=== PATIENT | female | born 1995 | race Caucasian/White ===

== ENCOUNTER → 2017-08-28 | Outpatient (CLI) | payer BC, OTHER | LOC: FIMAGING 15:18 | PROVIDERS: ATTEND Psychiatry & Neurology Neurology | DX: M47.892 Other spondylosis, cervical region (principal); G37.3 Acute transverse myelitis in demyelinating disease of central nervous system ==

== ENCOUNTER 2018-03-05 17:17 | Emergency (ER) | payer BC ==
[2018-03-05] MEDS ORDERED: GABAPENTIN 100 MG CAP PO ONE (18:07)
--- NOTE | 2018-03-05 18:34 | EDPHY ---
H & P Stated Complaint: transverse myelitis flare up started last tuesday, multiple neuro complaints Time Seen by Provider: 03/05/18 17:36 HPI/ROS: This patient presents with recurrence of transverse myelitis symptoms this week that started 1 week ago and worsened 4 days ago. She describes 7/10 midline thoracic back pain associated with painful dysesthesias to the left leg and feeling of tightness in the left leg. She also has paresthesias to the same extremities, tingling and numbness to the right lower extremity and a heavy feeling in her right arm. She denies any focal weakness. She also notes urinary urgency with occasional incontinence. She reports left hand spasm intermittently and she reports that the symptoms are similar to early transverse myelitis symptoms. She also reports that this is the worst recurrence flare that she has had. She explains that after the initial episode in 2012 that was idiopathic and involved spinal lesions between C5 in T1 she has had 2 other minor flares that were handled with outpatient steroids with resolution. She started prednisone 60 mg a day yesterday and today after consultation with Dr. Gomes her neurologist but notes ongoing symptoms without relief in with mild worsening of symptoms. She was also started on duloxetine in an effort to help control nerve pain but reports no improvement in the pain with onset of nausea, so she stopped that medication Tuesday, 2 days prior to arrival. She had ibuprofen and Tylenol 2 hr prior to arrival without much improvement in her pain. She notes no other exacerbating factors. Her mother drove her here by private vehicle for further evaluation. ROS: Constitutional: No fevers or chills. She does report generalized weakness. HEENT: No recent URI symptoms. Neuro: As per HPI. No headache. No vision changes. Pulmonary: No cough shortness of breath Cardiovascular: No chest pain, or palpitations or lightheadedness GI: Mild nausea and anorexia. No abdominal pain. No vomiting. : As per HPI. No dysuria. No flank pain. Integumentary: No skin rash. Complete ROS is otherwise negative. Source: Patient, Family (Patient is accompanied by her mother who also provides history) Exam Limitations: No limitations - Personal History LMP (Females 10-55): 8-14 Days Ago Tetanus Vaccine Date: 03/2011 - Medical/Surgical History Hx Asthma: No Hx Chronic Respiratory Disease: No Hx Diabetes: No Hx Cardiac Disease: No Hx Renal Disease: No Hx Cirrhosis: No Hx Alcoholism: No Hx HIV/AIDS: No Hx Splenectomy or Spleen Trauma: No Other PMH: PMH:transverse myelytis; R femor stress fx; cocyx fx; R tibia stress fx x2; spinal cord inflammation, OSTEOPENIA, GASTROPORESIS. PSH: T&A; ear tubes ; - Social History Smoking Status: Never smoked Alcohol Use: Occasionally Drug Use: None - Physical Exam Exam: Physical exam: Vital signs are normal General: Patient is in no acute distress. HEENT: Is no external evidence of trauma on exam. Nose atraumatic. Ears: Clear bilaterally with no hemotympanum. Oropharynx: No dental trauma or malocclusion. No intraoral lacerations. Eyes: Pupils are equal and reactive to light. Extraocular motions are intact. Optic fundi: Clear with no papilledema or hemorrhage. Neck: The patient has no midline neck tenderness and retains a full range of motion without increase in pain. Lungs: Clear to auscultation bilaterally Cardiac: Regular rate and rhythm no murmur gallop or rub. Abdomen: Soft nontender no organomegaly Back: The patient has midline thoracic tenderness in the upper thoracic spine region. No erythema or skin lesions. Extremities: Atraumatic Skin: Mildly diaphoretic. No rash. Neuro: GCS of 15. Cranial nerves II through XII intact. She reports diminished light touch sensation to the left hand in the region of the 4th and 5th fingers. She also reports diminished sensation but also increased sensitivity in a stocking distribution to the right leg. Appreciate no focal weakness in her 4 extremities. She maintains 2+ brisk DTRs biceps, triceps, brachioradialis, patellar and Achilles bilaterally. Initial differential diagnosis: Idiopathic Transverse myelitis recurrence, MS, lupus, viral syndrome, idiopathic neuropathy Constitutional: Initial Vital Signs Temperature (C) 37.2 C 03/05/18 17:30 Heart Rate 88 03/05/18 17:30 Respiratory Rate 18 03/05/18 17:30 Blood Pressure 111/67 03/05/18 17:30 O2 Sat (%) 92 03/05/18 17:30 O2 Delivery Mode Room Air Allergies/Adverse Reactions: tramadol Allergy (Verified 03/05/18 17:29) Home Medications: Medication Instructions Recorded Jaycee 28 Tablet 09/03/15 Fosamax 5mg 04/20/16 Doxycycline Hyclate 03/05/18 Prednisone 03/05/18 Medical Decision Making ED Course/Re-evaluation: Gabapentin 200 mg p.o. For nerve pain I consulted Dr. Sykes on-call for Dr. Gomes, neurology. He agrees with gabapentin plan explain that she go up to 300 mg HS for pain control. He recommends MRI imaging thigh with IV contrast of the neck and thoracic spine- location of her prior lesions. Explains the patient be admitted for high-dose IV steroids if she has enhancing lesions on MRI. Home with outpatient follow- up if not. Given that we do not have MRI capability in the weekend, will transfer this patient to [facility] Emergency Department. Patient and her mother both comfortable with this plan. I spoke with Dr. Erika Magaña, emergency physician who accepts this patient for transfer for MR imaging and further treatment as indicated. I answered the patient's questions and her mother's questions prior to transfer to [facility] Emergency Department - Data Points Medications Given: Discontinued Medications Gabapentin (Neurontin) 200 mg PO EDNOW ONE Stop: 03/05/18 18:08 Last Admin: 03/05/18 18:19 Dose: 200 mg Departure - Departure Disposition: [facility] ER Clinical Impression: Neuropathy, History of transverse myelitis Thoracic back pain Qualifiers: Chronicity: acute Back pain laterality: midline Qualified Code(s): M54.6 - Pain in thoracic spine Condition: Good Instructions: Thoracic Pain (ED) Additional Instructions: Diagnosis: 1. Thoracic pain 2. Neuropathy 3. History of transverse myelitis He received a 200 mg dose of gabapentin here for your pain. Plan: Proceed directly to [facility] Emergency Department for further evaluation via MRI imaging. Referrals: Mindy Rush MD [Primary Care Provider] - As per Instructions Esa Gomes MD [Medical Doctor] - As per Instructions
[2018-03-05] MEDS ORDERED: GADOBUTROL 10 ML VIAL IVP ONE (19:45)
[2018-03-05] MEDS ORDERED: LORazepam 2 MG/ML INJ ONE (19:51)
[2018-03-05] MEDS ORDERED: LORazepam 2 MG/ML INJ IVP ONE (19:53)
[2018-03-05 20:14] LABS: PLATELET COUNT 252 10^3/uL (150-400)
--- NOTE | 2018-03-05 20:35 | EDPHY ---
H & P Stated Complaint: transverse myelitis flare up started last tuesday, multiple neuro complaints Time Seen by Provider: 03/05/18 17:36 HPI/ROS: CHIEF COMPLAINT: Flare up of transverse myelitis HISTORY OF PRESENT ILLNESS: 22-year-old female with a history of transverse myelitis presents with paresthesias and weakness. 1 week ago, she developed pain in her thoracic spine, associated with dysesthesias in the left upper extremity, associated with spasming in the left hand. She also has similar symptoms on the right side, but not as bad. Her left lower extremity feels tight, but no weakness in her lower extremities. She saw Dr. Gomes in the office and was started on prednisone 60 mg daily yesterday. She was also started on duloxetine for pain control. She was seen at [facility] Emergency Department. Consultation with Dr. Kymberly Frazier was obtained and he recommended emergency department evaluation for MRI of the cervical and thoracic spine. She was given gabapentin 200 mg orally in the emergency department there. She was diagnosed with transverse myelitis in 2012, involving C5 through T1. Since then she has had 2 flares, each resolving with outpatient steroids. REVIEW OF SYSTEMS: complete 10 point ROS negative except at noted in the HPI - Personal History LMP (Females 10-55): 8-14 Days Ago Tetanus Vaccine Date: 03/2011 - Medical/Surgical History Hx Asthma: No Hx Chronic Respiratory Disease: No Hx Diabetes: No Hx Cardiac Disease: No Hx Renal Disease: No Hx Cirrhosis: No Hx Alcoholism: No Hx HIV/AIDS: No Hx Splenectomy or Spleen Trauma: No Other PMH: PMH:transverse myelytis; R femor stress fx; cocyx fx; R tibia stress fx x2; spinal cord inflammation, OSTEOPENIA, GASTROPORESIS. PSH: T&A; ear tubes ; - Social History Smoking Status: Never smoked Alcohol Use: None Drug Use: None Additional Social History: single - Physical Exam Exam: General Appearance: Alert, pleasant Eyes: Pupils equal and round, no conjunctival pallor or injection ENT, Mouth: Mucous membranes moist Neck: Normal inspection Respiratory: Lungs are clear to auscultation Cardiovascular: Regular rate and rhythm Gastrointestinal: Abdomen is soft and nontender Neurological: A&O, motor-left upper extremity 5-over 5 fleet assistant strength, otherwise 5/5 throughout, decrease in sensation to light touch bilateral upper extremities. Skin: Warm and dry, no rash Extremities: Normal inspection Psychiatric: Mood and affect normal Constitutional: Initial Vital Signs Temperature (C) 37.2 C 03/05/18 17:30 Heart Rate 88 03/05/18 17:30 Respiratory Rate 18 03/05/18 17:30 Blood Pressure 111/67 03/05/18 17:30 O2 Sat (%) 92 03/05/18 17:30 O2 Delivery Mode Room Air Allergies/Adverse Reactions: tramadol Allergy (Verified 03/05/18 17:29) Home Medications: Medication Instructions Recorded Jaycee 28 Tablet 09/03/15 Fosamax 5mg 04/20/16 Doxycycline Hyclate 03/05/18 Gabapentin [Neurontin 100 MG (*)] 200 mg PO TID #40 cap 03/05/18 Prednisone 03/05/18 Medical Decision Making - Diagnostics Imaging Results: Imaging Impressions Cervical Spine MRI 03/05/18 19:09 Impression: 1. Subtle residual gliosis in area of previous transverse myelitis at the C6 level involving the left side of the cervical spinal cord stable when compared to the recent MRI exams. No new abnormality seen associated with the cervical spinal cord. 2. Minimal disk bulges without consequences at C5-C6 and at C6-C7 stable in appearance. Findings discussed with Erika Magaña M.D. at 21:19 hour, 03/05/2018. Thoracic Spine MRI 03/05/18 19:09 Impression: Normal MRI of the thoracic spine without and with contrast. ED Course/Re-evaluation: MRI of the thoracic and cervical spine read by Dr. Derek Morrison is unremarkable for acute changes. No evidence for recurrent transverse myelitis by MRI. Results discussed with the patient and her mother. She will continue taking prednisone as an outpatient and follow up with Dr. Gomes in the office. A prescription for gabapentin was written at the patient request. - Data Points Laboratory Results: Laboratory Results 03/05/18 19:47 03/05/18 19:47 03/05/18 03/05/18 19:47 19:47 WBC 6.38 10^3/uL 10^3/uL (3.80-9.50) RBC 4.71 10^6/uL 10^6/uL (4.18-5.33) Hgb 15.0 g/dL g/dL (12.6-16.3) Hct 42.7 % % (38.0-47.0) MCV 90.7 fL fL (81.5-99.8) MCH 31.8 pg pg (27.9-34.1) MCHC 35.1 g/dL g/dL (32.4-36.7) RDW 11.9 % % (11.5-15.2) Plt Count 252 10^3/uL 10^3/uL (150-400) MPV 10.9 fL fL (8.7-11.7) Neut % (Auto) 79.4 % H % (39.3-74.2) Lymph % (Auto) 16.8 % % (15.0-45.0) [place] % (Auto) 3.1 % L % (4.5-13.0) Eos % (Auto) 0.0 % L % (0.6-7.6) Baso % (Auto) 0.2 % L % (0.3-1.7) Nucleat RBC Rel Count 0.0 % % (0.0-0.2) Absolute Neuts (auto) 5.07 10^3/uL 10^3/uL (1.70-6.50) Absolute Lymphs (auto) 1.07 10^3/uL 10^3/uL (1.00-3.00) Absolute Monos (auto) 0.20 10^3/uL L 10^3/uL (0.30-0.80) Absolute Eos (auto) 0.00 10^3/uL L 10^3/uL (0.03-0.40) Absolute Basos (auto) 0.01 10^3/uL L 10^3/uL (0.02-0.10) Absolute Nucleated RBC 0.00 10^3/uL 10^3/uL (0-0.01) Immature Gran % 0.5 % % (0.0-1.1) Immature Gran # 0.03 10^3/uL 10^3/uL (0.00-0.10) Sodium 139 mEq/L mEq/L (135-145) Potassium 4.6 mEq/L mEq/L (3.3-5.0) Chloride 104 mEq/L mEq/L (97-110) Carbon Dioxide 22 mEq/l mEq/l (22-31) Anion Gap 13 mEq/L mEq/L (8-16) BUN 11 mg/dL mg/dL (7-23) Creatinine 0.7 mg/dL mg/dL (0.6-1.0) Estimated GFR > 60 Glucose 151 mg/dL H mg/dL (70-100) Calcium 10.0 mg/dL mg/dL (8.5-10.4) Medications Given: Discontinued Medications Gabapentin (Neurontin) 200 mg PO EDNOW ONE Stop: 03/05/18 18:08 Last Admin: 03/05/18 18:19 Dose: 200 mg Lorazepam (Ativan Injection) 0.5 mg IVP EDNOW ONE Stop: 03/05/18 19:54 Last Admin: 03/05/18 19:53 Dose: 0.5 mg Departure - Departure Disposition: Home, Routine, Self-Care Clinical Impression: Neuropathy, History of transverse myelitis Thoracic back pain Qualifiers: Chronicity: acute Back pain laterality: midline Qualified Code(s): M54.6 - Pain in thoracic spine Condition: Good Instructions: Thoracic Pain (ED) Additional Instructions: You have received a 200 mg dose of gabapentin here for your pain. Referrals: Mindy Rush MD [Primary Care Provider] - As per Instructions Esa Gomes MD [Medical Doctor] - As per Instructions Prescriptions: Gabapentin [Neurontin 100 MG (*)] 200 mg PO TID #40 cap
[2018-03-05 21:39] VITALS: BP 101/65
== END 2018-03-05 21:58 | disposition home or self-care (01) ==
LOC: CED 17:17
DX: G62.9 Polyneuropathy, unspecified (principal); Z86.69 Personal history of other diseases of the nervous system and sense organs
CPT/HCPCS: 96374; A9585; J2060